=== PATIENT | female | born 1970 | race Caucasian/White ===

== ENCOUNTER 2020-11-26 10:01 | Outpatient (CLI) | payer OTHER, SELFPAY ==
[2020-11-26 10:47] LABS: Basophils Absolute Auto 0.1 K/mm3 (0.0-0.1); Basophils Percent Auto 1.3 % (0.2-1.2); Eosinophils Absolute Auto 0.2 K/mm3 (0-0.3); Hematocrit 38.7 % (37.0-47.0); Hemoglobin 12.7 g/dL (12.0-15.0); Immature Granulocyte Absolute 0.02 K/mm3 (0.00-0.031); Immature Granulocyte Percent A 0.3 % (0-0.5); Lymphocytes Absolute Auto 2.71 K/mm3 (0.9-3.2); Lymphocytes Percent Auto 38.6 % (18.3-44.2); Mean Corpuscular HGB Conc 32.8 g/dl (32-36); Mean Corpuscular Hemoglobin 31.5 pg (26-34); Mean Platelet Volume 11.6 fl (7.4-10.4); Monocytes Absolute Auto 0.6 K/mm3 (0.1-0.6); Monocytes Percent Auto 8.5 % (2.6-8.5); Neutrophils Absolute Auto 3.4 K/mm3 (1.3-6.7); Neutrophils Percent Auto 48.3 % (45.5-73.1); Platelet Count Result 245 k/mm3 (150-375); Red Blood Count 4.03 M/mm3 (4.2-5.4); Red Cell Distribution Width 12.7 % (11.5-14.5)
[2020-11-26 11:00] LABS: Alanine Aminotransferase 10 U/L (4-35); Albumin Level 4.4 g/dL (3.5-5.1); Alkaline Phosphatase 51 U/L (38-126); Anion Gap 9 mmol/L (8-16); Aspartate Amino Transferase 20 U/L (14-36); Bilirubin,Total 0.4 mg/dL (0.2-1.3); Blood Urea Nitrogen 9 mg/dL (7-17); Calcium 9.5 mg/dL (8.4-10.2); Carbon Dioxide 26 mmol/L (22-30); Chloride 103 mmol/L (98-107); Cholesterol 187 mg/dL (0-200); Estimated Glomerular Filt Rate > 60; Glucose 90 mg/dL (65-105); HDL Direct 62 mg/dL; Potassium 4.4 mmol/L (3.4-5.0); Sodium 138 mmol/L (137-145); Triglycerides 62 mg/dL (<150)
[2020-11-26 11:11] LABS: LDL Cholesterol Direct 91 mg/dL
[2020-11-26 11:30] LABS: Free T4 Free Thyroxine 0.92 ng/mL (0.78-2.19)
[2020-11-29 20:06] LABS: FSH 12.7 mIU/mL (***); LH 8.3 mIU/mL (***)
== END 2020-11-26 10:02 | disposition home or self-care (01) ==
PROVIDERS: PCP Family Medicine; Visit Provider Family Medicine
DX: Z00.00 Encounter for general adult medical examination without abnormal findings (principal); R60.9 Edema, unspecified; N95.1 Menopausal and female climacteric states
CPT/HCPCS: 36415; 80053; 80061; 83001; 83002; 84439; 84443; 85025

== ENCOUNTER 2021-05-08 07:49 | Outpatient (CLI) | payer OTHER, SELFPAY ==
--- NOTE | ~2021-05-08 | MM_ITS ---
EXAMINATION: MM screening [facility] BI w diana HISTORY: Screening mammogram TECHNIQUE: Craniocaudal and mediolateral oblique 3-D tomosynthesis images were obtained and synthetic 2-D images were generated. CAD analysis was submitted and interpreted. COMPARISON: 08/06/2018, 03/13/2017 BREAST PARENCHYMAL COMPOSITION: There are scattered areas of fibroglandular density. FINDINGS: There is no evidence of suspicious mass, calcification, or architectural distortion to sugg est malignancy in either breast. There has been no suspicious interval change. IMPRESSION: 1. No mammographic evidence of malignancy. 2. Recommend routine screening mammography in one year. BI-RADS Category 1: Negative Reviewed, dictated and finalized at location A. RVISOR SANDBLASTER
== END 2021-05-08 07:50 | disposition home or self-care (01) ==
PROVIDERS: PCP Family Medicine; Visit Provider Physician Assistant
DX: Z12.31 Encounter for screening mammogram for malignant neoplasm of breast (principal)
CPT/HCPCS: 77063; 77067

== ENCOUNTER 2022-01-29 16:08 | Emergency (ER) | payer OTHER, SELFPAY ==
--- NOTE | 2022-01-29 16:10 | ED.EXTPRO ---
HPI - Extremity Problem General Chief complaint: Skin/Abscess/Foreign Body Stated complaint: swollen finger Time Seen by Provider: 01/29/22 16:09 Source: patient Mode of arrival: ambulatory Limitations: no limitations History of Present Illness HPI Narrative: Ms. Oropeza is a 51-year-old female patient presenting to the clinic today with complaints of a swollen finger right fourth finger. She reports she had what she thought was an ingrown hangnail and remove this. Reports that the pain began last night. Has redness, pain and swelling to the fourth medial distal finger without obvious abscess/drainage. Related Data Allergies Allergy/AdvReac Type Severity Reaction Status Date / Time ibuprofen AdvReac Intermediate Gastrointestinal Verified 01/29/22 16:11 Upset Review of Systems Review of Systems: Pertinent positives per HPI. Patient denies any fever, chills, rash, headache, visual changes, dizziness, cough, runny nose, sore throat, shortness of breath, chest pain, palpitations, nausea, vomiting, diarrhea, constipation, abdominal pain, or any urinary issues. PMFSH Past Medical History Medical History Nicotine dependence Family History Family History Father Hypertension Family history of cardiovascular disease Mother Hypertension Family history of cardiovascular disease Carcinoma of colon, Onset Age: 57 Other Family history of irritable bowel syndrome Social History Social History Smoking packs per day: 1 Smoking cigarettes per day: 20.0 Years smoked: 20 Smoking pack-years: 20.00 Smoking status: Former smoker Smoking end date: 05/27/19 Alcohol intake: current Substance use: current Substance use type: marijuana Comments At the time of my signature, I reviewed and agree with the nursing past medical, surgical, social, and family history. There is no relevant family history pertinent to the patient complaint. Exam Narrative: General: Well-developed, well nourished, in no apparent distress Head: Normocephalic, atraumatic. Cardio: Regular rate and rhythm, s1 and s2 normal, no murmur appreciated. Resp: Clear to auscultation bilaterally, no rhonchi, rales, wheezing or rubs. Integumentary: [place], warm, and dry, red, tender, and swollen medial right fourth distal finger without discharge or abscess Course Course Emergency Course: Portions of this record may have been created with voice recognition software. Level of Care: Express Care Visit Vital Signs Vital signs: Vital Signs Temperature 37.1 C 01/29/22 16:15 Pulse Rate 64 01/29/22 16:15 Respiratory Rate 18 01/29/22 16:15 Blood Pressure 121/65 01/29/22 16:15 Pulse Oximetry 100 01/29/22 16:15 Oxygen Delivery Room Air 01/29/22 16:15 Temperature 37.1 C 01/29/22 16:15 Pulse Rate 64 01/29/22 16:15 Respiratory Rate 18 01/29/22 16:15 Blood Pressure 121/65 01/29/22 16:15 Pulse Oximetry 100 01/29/22 16:15 Oxygen Delivery Room Air 01/29/22 16:15 Vital signs reviewed MDM - Extremity (Nontraumatic) MDM Narrative Medical decision making narrative: At the time of visit patient is resting comfortably on the exam table. I suspect the patient has a paronychia to the right fourth finger. I will place her on a prescription of doxycycline. Supportive measures were discussed with the patient she voiced understanding of discharge instructions and agrees to treatment plan. Differential Diagnosis Differential diagnosis: Likely cellulitis and other (Paronychia, ingrown fingernail infected) Discharge Plan Discharge Clinical Impression: Paronychia Patient Disposition: Home, Self-Care Condition: Stable Instructions: Antibiotic Form, Paronychia (ED) Additional Instructions: May continue to soak finger in Ep
[2022-01-29 16:15] VITALS: BP 121/65; PULSE 64; RESP 18; TEMP 37.1; O2SAT 100
== END 2022-01-29 16:26 | disposition home or self-care (01) ==
PROVIDERS: Emergency Provider Nurse Practitioner Family; PCP Family Medicine
DX: L03.011 Cellulitis of right finger (principal); Z87.891 Personal history of nicotine dependence
CPT/HCPCS: 99213; G0463

== ENCOUNTER 2022-03-07 10:03 | Emergency (ER) | payer OTHER, SELFPAY ==
[2022-03-07 10:17] VITALS: BP 142/84; PULSE 67; RESP 18; TEMP 36.5; O2SAT 100
--- NOTE | 2022-03-07 10:21 | ED.EXTPRO ---
HPI - Extremity Problem General Chief complaint: Skin/Abscess/Foreign Body Stated complaint: Finger on Lt Hand Source: patient History of Present Illness HPI Narrative: This is a 51-year-old female who presented to the urgent care with complaints of left middle finger pain and swelling. According to patient she has had this condition in the past she noted that while she was at home she soaked her finger in [place] salt. The patient denies SOB, CP, palpitation, extremity numbness, lightheadedness, dizziness, constipation, diarrhea, chills, or fever. Sensations positive, pulses present in affected finger Related Data Allergies Allergy/AdvReac Type Severity Reaction Status Date / Time ibuprofen AdvReac Intermediate Gastrointestinal Verified 03/07/22 10:05 Upset Review of Systems Review of Systems: A 14 organ system Review of Systems was performed and pertinent positives included in the HPI, otherwise remaining ROS is negative. [facility] Past Medical History Medical History Nicotine dependence Family History Family History Father Hypertension Family history of cardiovascular disease Mother Hypertension Family history of cardiovascular disease Carcinoma of colon, Onset Age: 57 Other Family history of irritable bowel syndrome Social History Social History Smoking packs per day: 1 Smoking cigarettes per day: 20.0 Years smoked: 20 Smoking pack-years: 20.00 Smoking status: Former smoker Smoking end date: 05/27/19 Alcohol intake: current Substance use: current Substance use type: marijuana Exam Narrative: GENERAL: This is a well-nourished, well-developed patient, in no apparent distress. HEAD: normocephalic, atraumatic. EYES: PERRL. Sclera clear/white. Vision is grossly intact. EARS: External ears normal, auditory canals clear and without drainage, TMs normal without perforation. Hearing grossly intact. NOSE: External nose normal with no obvious nasal discharge, nares without redness, no rhinorrhea. THROAT: Mucous membranes moist, posterior pharynx clear. NECK: Neck supple, non-tender without lymphadenopathy, masses or thyromegaly. CARDIOVASCULAR: Regular rate and rhythm without murmurs, gallops, or rubs. RESPIRATORY: Clear to auscultation. Breath sounds equal bilaterally. No wheezes, rales, or rhonchi. GASTROINTESTINAL: Abdomen soft, non-tender, nondistended. Bowel sounds are active. No hepato-splenomegaly, or palpable masses. No guarding. SKIN: warm, intact with no suspicious lesions or rash, good texture and turgor. NEURO: awake, alert, and oriented to person, place and time. There were no obvious focal neurologic abnormalities. EXTREMITIES: Normal range of motion.. No calf tenderness. Left middle finger with edema and erythema. Course Course Level of Care: Express Care Visit Vital Signs Vital signs: Vital Signs Temperature 97.7 F 03/07/22 10:17 Pulse Rate 67 03/07/22 10:17 Respiratory Rate 18 03/07/22 10:17 Blood Pressure 142/84 H 03/07/22 10:17 Pulse Oximetry 100 03/07/22 10:17 Oxygen Delivery Room Air 03/07/22 10:17 Temperature 97.7 F 03/07/22 10:17 Pulse Rate 67 03/07/22 10:17 Respiratory Rate 18 03/07/22 10:17 Blood Pressure 142/84 H 03/07/22 10:17 Pulse Oximetry 100 03/07/22 10:17 Oxygen Delivery Room Air 03/07/22 10:17 MDM - Extremity (Nontraumatic) Differential Diagnosis Differential diagnosis: Likely cellulitis and lower extremity edema Medical Records Attestation: I reviewed the patient's medical records. Discharge Plan Discharge Clinical Impression: Cellulitis Patient Disposition: Home, Self-Care Condition: Stable Instructions: Antibiotic Form, Cellulitis (ED) Additional Instructions: Take medications as prescribed. Foll
== END 2022-03-07 10:28 | disposition home or self-care (01) ==
PROVIDERS: Emergency Provider Nurse Practitioner; PCP Family Medicine
DX: L03.012 Cellulitis of left finger (principal); Z87.891 Personal history of nicotine dependence
CPT/HCPCS: 99213; G0463

== ENCOUNTER → 2022-04-26 11:30 | Outpatient (CLI) | payer OTHER, SELFPAY ==
--- NOTE | ~2022-04-26 | XR_ITS ---
XR chest 2V DATE: 04/26/2022 12:06 INDICATION: Chest pain, anxiety. Former smoker. TECHNIQUE: 2 views COMPARISON: None FINDINGS: Normal heart size. No hilar or mediastinal enlargement. The lungs are moderately hyperinflated but clear of infiltrate or consolidation. No pleural effusion or pulmonary vascular congestion or pneumothorax. Moderate thoracic and lumbar scoliosis. IMPRESSION: Moderate bilateral hyperinflation No active cardiac pulmonary disease Moderate thoracic and lumbar scoliosis Reviewed, dictated and finalized at location B. UNITY ASSISTANT
== END ==
PROVIDERS: PCP Physician Assistant; Visit Provider Physician Assistant
DX: R07.9 Chest pain, unspecified (principal); M41.9 Scoliosis, unspecified
CPT/HCPCS: 71046

== ENCOUNTER 2022-05-09 09:57 | Outpatient (CLI) | payer OTHER, SELFPAY ==
--- NOTE | 2022-05-09 10:34 | EST_ITS ---
Patient Info Name: Suzanne Rodriguez Age: 51 years : 1970 Gender: Female Ht: 62 in Wt: 125 lbs BSA: 1.58 m2 HR: 61 bpm BP: 147 / 88 mmHg Heart Rhythm: Sinus Rhythm Exam Date: 05/09/2022 10:53 AM Exam Location: [facility] Stress Patient Status: Outpatient Admit Date: 05/09/2022 Staff Ordering Physician: Johan De La Rosa PA-C Attending Provider: Johan De La Rosa PA-C Exercise Technologist: Aida Gay CT Exercise Physician: Chao Juarez DO Exam Type: CA stress test treadmill Study Info Indications R07.9 - Chest pain, unspecified A treadmill exercise stress test was performed. Summary 1. 1. Negative [place] exercise stress test for ischemic ST changes by ECG criteria. 2. 2. Good functional capacity, achieving 10 METs of workload. 3. 3. Baseline hypertension. 4. 4. Appropriate HR response to exercise. 5. 5. Appropriate HR recovery at 1 minute post exercise. 6. 6. No imaging with stress testing. 7. 7. Patient informed of the above results. Protocol: [place] Stress ECG Details Stage: REST Duration (min): 3 min : 27 sec Speed (mph): 0.0 Grade (%): 0 HR (bpm): 65 SBP (mmHg): 147 DBP (mmHg): 88 METS: --- Stage: REST Duration (min): 14 min : 34 sec Speed (mph): 0.0 Grade (%): 0 HR (bpm): 65 SBP (mmHg): 147 DBP (mmHg): 88 METS: --- Stage: STAGE 1 Duration (min): 1 min : 0 sec Speed (mph): 1.7 Grade (%): 10 HR (bpm): 100 SBP (mmHg): 147 DBP (mmHg): 88 METS: --- Stage: STAGE 1 Duration (min): 2 min : 0 sec Speed (mph): 1.7 Grade (%): 10 HR (bpm): 101 SBP (mmHg): 147 DBP (mmHg): 88 METS: --- Stage: STAGE 1 Duration (min): 3 min : 0 sec Speed (mph): 1.7 Grade (%): 10 HR (bpm): 101 SBP (mmHg): 147 DBP (mmHg): 96 METS: --- Stage: STAGE 2 Duration (min): 1 min : 0 sec Speed (mph): 2.5 Grade (%): 12 HR (bpm): 121 SBP (mmHg): 147 DBP (mmHg): 96 METS: --- Stage: STAGE 2 Duration (min): 2 min : 0 sec Speed (mph): 2.5 Grade (%): 12 HR (bpm): 127 SBP (mmHg): 147 DBP (mmHg): 96 METS: --- Stage: STAGE 2 Duration (min): 3 min : 0 sec Speed (mph): 2.5 Grade (%): 12 HR (bpm): 130 SBP (mmHg): 147 DBP (mmHg): 96 METS: --- Stage: STAGE 3 Duration (min): 1 min : 0 sec Speed (mph): 3.4 Grade (%): 14 HR (bpm): 137 SBP (mmHg): 147 DBP (mmHg): 96 METS: --- Stage: STAGE 3 Duration (min): 2 min : 0 sec Speed (mph): 3.4 Grade (%): 14 HR (bpm): 152 SBP (mmHg): 147 DBP (mmHg): 96 METS: --- Stage: STAGE 3 Duration (min): 2 min : 59 sec Speed (mph): 4.2 Grade (%): 16 HR (bpm): 156 SBP (mmHg): 147 DBP (mmHg): 96 METS: --- Stage: RECOVERY Duration (min): 1 min : 0 sec Speed (mph): 0.0 Grade (%): 0 HR (bpm): 108 SBP (mmHg): 147 DBP (mmHg): 96 MET
== END 2022-05-09 09:58 | disposition home or self-care (01) ==
LOC: ANHCARD 09:59
PROVIDERS: PCP Physician Assistant; Visit Provider Physician Assistant
DX: R07.9 Chest pain, unspecified (principal)
CPT/HCPCS: 93017

== ENCOUNTER 2022-07-06 08:43 | Outpatient (CLI) | payer OTHER, SELFPAY ==
--- NOTE | ~2022-07-06 | MM_ITS ---
EXAMINATION: MM screening [facility] BI w diana HISTORY: Screening mammogram TECHNIQUE: Craniocaudal and mediolateral oblique 3-D tomosynthesis images were obtained and synthetic 2-D images were generated. CAD analysis was submitted and interpreted. COMPARISON: 05/08/2021, 08/06/2018, 03/13/2017, 03/13/2017, 06/29/2013 bilateral screening mammogram exa minations BREAST PARENCHYMAL COMPOSITION: There are scattered areas of fibroglandular density. FINDINGS: Stable asymmetric increased density in the right inferolateral subareolar area since 2013. There is no evidence of suspicious mass, calcification, or architectural distortion to suggest malign babar in either breast. There has been no suspicious interval change. IMPRESSION: 1. No mammographic evidence of malignancy. 2. Recommend routine screening mammography in one year. BI-RADS Category 1: Negative Reviewed, dictated and finalized at location A. GER NET
== END 2022-07-06 08:44 | disposition home or self-care (01) ==
PROVIDERS: PCP Family Medicine; Visit Provider Physician Assistant
DX: Z12.31 Encounter for screening mammogram for malignant neoplasm of breast (principal)
CPT/HCPCS: 77063; 77067

== ENCOUNTER 2022-09-26 07:50 | Outpatient (CLI) | payer OTHER, SELFPAY ==
--- NOTE | ~2022-09-26 | US_ITS ---
Limited Abdominal Sonogram: Real-time sonographic imaging of the right upper quadrant was performed. Clinical History: Right upper quadrant pain Findings: The liver appears normal with no evidence of mass lesion or bile duct dilatation. Main por pavan vein demonstrates normal direction of flow. The gallbladder is well distended, and appears normal with no evidence of gallstone or wall thickening. The common bile duct measures 3 mm. The visualize d pancreas, aorta, and IVC are unremarkable. Impression: No significant abnormality seen. Reviewed, dictated and finalized at location M. Impression: No significant abnormality seen.
== END 2022-09-26 07:51 | disposition home or self-care (01) ==
PROVIDERS: PCP Family Medicine; Visit Provider Physician Assistant
DX: R10.11 Right upper quadrant pain (principal)
CPT/HCPCS: 76705

== ENCOUNTER 2023-08-27 16:55 | Outpatient (CLI) | payer OTHER, SELFPAY ==
--- NOTE | ~2023-08-27 | US_ITS ---
EXAMINATION: US thyroid DATE: 08/27/2023 18:28 INDICATION: Nontoxic, single thyroid nodule TECHNIQUE: Multiple ultrasound images of the thyroid were obtained. COMPARISON: None. FINDINGS: The right thyroid lobe measures 4.8 x 1.3 x 1.3 cm. The left thyroid lobe measures 3.8 x 0.8 x 1.0 c m. The isthmus measures 0.3 cm. There is normal echotexture and echogenicity throughout the thyroid g land. No discrete nodules identified. Normal vascular flow is present. IMPRESSION: Normal thyroid ultrasound findings. Reviewed, dictated and finalized at location K.
== END 2023-08-27 16:56 | disposition home or self-care (01) ==
LOC: ANHIMG 16:56
PROVIDERS: PCP Family Medicine; Visit Provider Family Medicine
DX: E04.1 Nontoxic single thyroid nodule (principal)
CPT/HCPCS: 76536

== ENCOUNTER 2023-10-11 08:30 | Outpatient (RCR) | payer OTHER, SELFPAY ==
--- NOTE | 2023-09-03 11:55 | OPREHPOC ---
Outpatient Therapy Plan of Care This is a Multidisciplinary Plan of Care that may contain components documented by all disciplines (PT, OT, and ST.) PT Problem 1 PT Problem #1 Knowledge Deficit PT Goal 1 Goal Pt to be IND with issued HEP. Target Visit 6 PT Problem 2 PT Problem #2 Pain PT Goal 1 Goal Pt to report hip pain no greater than 3/10 in the last week. Target Visit 8 PT Goal 2 Goal Pt to report 75% improvement in overall symptoms. PT Problem 3 PT Problem #3 Impaired Strength PT Goal 1 Goal Pt to improve hip abduction strength to grossly 4+ /5 Target Visit 8 PT Goal 2 Goal Pt to demonstrate a functional lift and carry from ground level with 30lb Target Visit 8
--- NOTE | 2023-09-03 11:55 | PTOPEVAL1 ---
Assessment and note entered by Emmy Bahena, PT, DPT Evaluation Information Assessment Status Evaluation Diagnosis caleb hip pain Onset 6 months Subjective Information Pt reports lower back and anterior hip pain, but primarily her hips. She states pain that fluctuates depending on her activity level. She will wake up while sleeping, has difficultly bending over, and with prolonged positions. She states she has been talking Alive which has helped her pain but is messing with her stomach some. She reports that she walks at the [facility] and does yoga a couple times a week. Reported Pain Level Pain Score 0: Self Report Assessment PT Clinical Summary Suzanne presents to therapy today with a diagnosis of caleb hip pain. Today she demonstrates BLE hypermobility with grossly a 4/5 muscle grade strength. She demonstrates asymmetric pelvic positioning in supine. She demonstrates increased lateral pelvic motion during ambulation and decreased body awareness with poor lifting mechanics during a functional movement assessment. Skilled therapy services are indicated to address the deficits noted above, to improve function and stability, and to return to OF. Plan of Care Interventions Electrical Stimulation,Gait Training,Hot Pack/Cold Pack PT Services Indicated Yes Treatment Frequency and 1x/wk for 6 visits Duration These treatments will address the objective and functional deficits as defined above. The patient will be advanced safely and appropriately in order for the patient to progress towards his/her prior level of function. Additional exercises will be introduced and as well as a comprehensive home exercise program upon discharge, if needed, ?to ensure carryover of functional gains achieved in the clinic. This treatment plan has been reviewed and agreement upon by the patient.
--- NOTE | 2023-10-11 09:02 | OPREHPOC ---
Outpatient Therapy Plan of Care This is a Multidisciplinary Plan of Care that may contain components documented by all disciplines (PT, OT, and ST.) PT Problem 1 PT Problem #1 Knowledge Deficit PT Goal 1 Goal Pt to be IND with issued HEP. Target Visit 6 Progress Met PT Problem 2 PT Problem #2 Pain PT Goal 1 Goal Pt to report hip pain no greater than 3/10 in the last week. Target Visit 8 Progress Met PT Goal 2 Goal Pt to report 75% improvement in overall symptoms. Progress Met PT Problem 3 PT Problem #3 Impaired Strength PT Goal 1 Goal Pt to improve hip abduction strength to grossly 4+ /5 Target Visit 8 Progress Met PT Goal 2 Goal Pt to demonstrate a functional lift and carry from ground level with 30lb Target Visit 8 Progress Met
--- NOTE | 2023-10-11 09:02 | PTOPDC ---
Assessment and note entered by Ryan Zhu, PT Evaluation Information Assessment Status Discharge Diagnosis caleb hip pain Onset 6 months Subjective Information Reports that she feel she has hit all of her goals for therapy. States that she has had minimal to no pain with activity and has resumed majority of her exercise routine with no issues. Requests discharge at this time. Reported Pain Level Pain Score 0: Self Report Assessment PT Clinical Summary Patient has met all goals for therapy at this time and is suitable for discharge to [facility]. Patient demonstrates improved strength and stabilization and good understanding of HEP to continue to improve. Plan of Care PT Services Indicated D/C to HEP
== END 2023-10-11 10:36 | disposition home or self-care (01) ==
LOC: ANHGOSHPT 08:30
PROVIDERS: PCP Family Medicine; Visit Provider Family Medicine
DX: S30.1XXD Contusion of abdominal wall, subsequent encounter (principal); M70.70 Other bursitis of hip, unspecified hip
CPT/HCPCS: 97110; 97112; 97161; 97530

== ENCOUNTER 2024-01-10 10:05 | Emergency (ER) | payer OTHER, SELFPAY ==
[2024-01-10 10:15] VITALS: BP 139/81; PULSE 65; RESP 16; TEMP 36.8; O2SAT 100
[2024-01-10 10:34] LABS: EDSTREPNEGPOS1 Presumptive Negative
--- NOTE | 2024-01-10 10:44 | ED.EAR ---
HPI - Ear Problem General Chief complaint: Ear Stated complaint: R EARACHE/CLOGGED/SORE THROAT Time Seen by Provider: 01/10/24 10:36 Source: patient and RN notes reviewed Mode of arrival: ambulatory Limitations: no limitations History of Present Illness HPI Narrative: Patient presents today complaining of 5 day history of right ear clogging and ringing, with a 2 day history of sore throat and postnasal drainage. Reports she has bit of a chronic congestion due to allergies for which she takes Zyrtec. She has also been taking some Tylenol with mild relief. Denies fever, cough. Related Data Allergies Allergy/AdvReac Type Severity Reaction Status Date / Time ibuprofen AdvReac Intermediate Gastrointestinal Verified 08/22/23 14:54 Upset lisinopril AdvReac Intermediate Cough Verified 08/22/23 15:20 Review of Systems Review of Systems: CONSTITUTIONAL: Denies body aches, fever, chills, or sweats. EYES: Denies visual changes, redness, or discharge. ENT: Denies rhinorrhea, congestion. + sore throat, right ear clogging, postnasal drip, congestion CARDIOVASCULAR: Denies chest pain, palpitations, or edema. RESPIRATORY: Denies cough or dyspnea. GASTROINTESTINAL: Denies abdominal pain, nausea, vomiting, or diarrhea. GENITOURINARY: Denies dysuria or hematuria. SKIN: Denies rash, itching, or wounds. MUSCULOSKELETAL: Denies back pain, joint pain, or myalgia. NEUROLOGIC: Denies headache, numbness, tingling, or weakness. PSYCH: Denies depression or anxiety. [facility] Past Medical History Medical History Clostridium difficile colitis Nicotine dependence Family History Family History Father Hypertension Family history of cardiovascular disease Mother Hypertension Family history of cardiovascular disease Carcinoma of colon, Onset Age: 57 Other Family history of irritable bowel syndrome Social History Social History Smoking packs per day: 1 Smoking cigarettes per day: 20.0 Years smoked: 20 Smoking pack-years: 20.00 Smoking status: Former smoker Smoking end date: 10/25/22 Alcohol intake: current Substance use: current Substance use type: marijuana Lack of Transportation: No Lack of Food: Never True Current Housing: I Have Housing Concerned About Future Housing: No Difficulty Paying Gas/Electric Bills: No Currently Unemployed: No Education: High School Diploma/GED Difficulty w/ Childcare or Family Care: No Comments At time of signature, I have reviewed and agree with nursing past medical, surgical, social and family history unless otherwise noted. Please see nursing chart for further information. There is no relevant family history pertinent to the presenting complaint Exam Narrative: GENERAL: Well-appearing, well-nourished, and in no acute distress. HEAD: Normocephalic, atraumatic. EYES: EOMI. No redness or drainage. Conjunctivae normal. ENT: Mucous membranes pink and moist. Nares congested. No rhinorrhea. TMs normal bilaterally. Throat normal. Uvula midline. NECK: Normal AROM. Supple. No lymphadenopathy. CHEST: No respiratory distress. Clear to auscultation. HEART: Regular rate and rhythm. No murmur appreciated. EXTREMITIES: Normal range of motion. No edema. SKIN: Warm, dry, no rash. Capillary refill normal. Normal skin turgor. NEURO: No focal deficits. Alert and oriented x3. Gait steady. PSYCH: Normal affect. No signs of depression or anxiety. Course Course Level of Care: Express Care Visit Vital Signs Vital signs: Vital Signs Temperature 98.3 F 01/10/24 10:15 Pulse Rate 65 01/10/24 10:15 Respiratory Rate 16 01/10/24 10:15 Blood Pressure 139/81 01/10/24 10:15 Pulse Oximetry 100 01/10/24 10:15 Temperature 98.3 F 01/10/24 10:15 Pulse Rate 65 01/09
== END 2024-01-10 10:51 | disposition home or self-care (01) ==
PROVIDERS: Emergency Provider Nurse Practitioner; PCP Family Medicine
DX: J06.9 Acute upper respiratory infection, unspecified (principal); Z87.891 Personal history of nicotine dependence; F12.90 Cannabis use, unspecified, uncomplicated
CPT/HCPCS: 87081; 87880; 99213; G0463

== ENCOUNTER 2024-03-02 09:11 | Outpatient (CLI) | payer OTHER, SELFPAY | END 2024-03-02 09:12 | disposition home or self-care (01) | LOC: ANHAUDIO 09:13 | PROVIDERS: PCP Family Medicine; Visit Provider Family Medicine | DX: H90.41 Sensorineural hearing loss, unilateral, right ear, with unrestricted hearing on the contralateral side (principal) | CPT/HCPCS: 92557; 92567 ==

== ENCOUNTER 2024-03-22 12:18 | Emergency (ER) | payer OTHER, SELFPAY ==
[2024-03-22 12:23] VITALS: BP 129/80; PULSE 59; RESP 16; TEMP 36.6; O2SAT 100
--- NOTE | 2024-03-22 12:29 | ED.GENADULT ---
HPI - General Adult General Chief complaint: Dental/Oral Stated complaint: Tooth Pain/Neck Pain Time Seen by Provider: 03/22/24 12:29 Source: patient Mode of arrival: ambulatory Limitations: no limitations History of Present Illness HPI narrative: 53 year old female presents to the [facility] with co left sided ear, jaw and throat pain. Patient states she has an appt with her dentist tomorrow to check out her tooth to the bottom left back. colleague denies fevers, body aches and chills. Colleauge states she has been controlling her pain with TYN but the pain has significantly increase today. Denies congestion, or cough. Related Data Home Medications Medication Instructions Recorded Confirmed cetirizine 10 mg capsule (Zyrtec) 10 mg PO DAILY PRN 02/18/24 02/18/24 Allergies Allergy/AdvReac Type Severity Reaction Status Date / Time ibuprofen AdvReac Intermediate Gastrointestinal Verified 03/22/24 12:35 Upset lisinopril AdvReac Intermediate Cough Verified 03/22/24 12:35 Review of Systems Review of Systems: CONSTITUTIONAL: Denies fever, chills, or sweats. EYES: Denies visual changes, redness, or discharge. ENT: Denies rhinorrhea, congestion, Positive sore throat, positive left otalgia. positive left-sided jaw pain and dental pain CARDIOVASCULAR: Denies chest pain, palpitations, or edema. RESPIRATORY: Denies cough or dyspnea. GASTROINTESTINAL: Denies abdominal pain, nausea, vomiting, or diarrhea. GENITOURINARY: Denies dysuria or hematuria. SKIN: Denies rash or itching. MUSCULOSKELETAL: Denies back pain, joint pain, or myalgia. NEUROLOGIC: Denies headache, numbness, or weakness. PSYCHIATRIC: Denies anxiety or depression. [facility] Past Medical History Medical History Clostridium difficile colitis Nicotine dependence Vasovagal episode when she got her flu and shingles shot at [employer]. Family History Family History Father Hypertension Family history of cardiovascular disease Mother Hypertension Family history of cardiovascular disease Carcinoma of colon, Onset Age: 57 Other Family history of irritable bowel syndrome Social History Social History Smoking packs per day: 1 Smoking cigarettes per day: 20.0 Years smoked: 20 Smoking pack-years: 20.00 Smoking status: Former smoker Smoking end date: 10/25/22 Alcohol intake: never Substance use: current Substance use type: marijuana Other substance usage details: edible and vape Last use: today Do You Feel Safe in your Home?: Yes Lack of Transportation: No Lack of Food: Never True Current Housing: I Have Housing Concerned About Future Housing: No Difficulty Paying Gas/Electric Bills: No Currently Unemployed: No Education: High School Diploma/GED Difficulty w/ Childcare or Family Care: No Comments At the time of my signature I agree with nursing past medical history, surgical, social, and family history. There is no relevant family history pertinent to the presenting complaint. Exam Narrative: GENERAL: Well-appearing, well-nourished, and in no acute distress. HEAD: Normocephalic, atraumatic. EYES: PERRLA and EOMI. ENT: Nares clear, no rhinorrhea or epistaxis. Mucous membranes moist. no significant redness or swelling noted to the or need dental areas in the mouth. There is some white spots noted to the posterior pharynx but do not tonsillar enlargement noted. The bilateral TMs are clear no erythema or foreign bodies the canal. NECK: Supple. No lymphadenopathy CHEST: Clear to auscultation. No respiratory distress. HEART: Regular rate and rhythm. No murmur heard. Normal peripheral pulses. ABDOMEN: Soft, nontender, nondistended, normal active bowel sounds. EXTREMITIES: Normal range of motion. No edema. SKIN: Warm, dry, no rash. NEURO: No focal deficits. Alert and oriented x3. Course Course Level of Care: Express Care Visit Reevaluation(s) Reevaluation #1: re-evaluated patient notified of the the strep test is negative we will send off the lab for culture. Discussed with her and re-evaluated the jaw the left no obvious TMJ noted. Discussed with patient to continue to follow-up with her dentist as scheduled for tomorrow continue taking Tylenol ibuprofen for pain may use a warm compress to the area as well. Patient aware plan of care denies any other questions or concerns. Date: 03/22/24 Time: 12:55 Vital Signs Vital signs: Vital Signs Temperature 36.6 C 03/22/24 12:23 Pulse Rate 59 L 03/22/24 12:23 Respiratory Rate 16 03/22/24 12:23 Blood Pressure 129/80 03/22/24 12:23 Pulse Oximetry 100 03/22/24 12:23 Temperature 36.6 C 03/22/24 12:23 Pulse Rate 59 L 03/22/24 12:23 Respiratory Rate 16 03/22/24 12:23 Blood Pressure 129/80 03/22/24 12:23 Pulse Oximetry 100 03/22/24 12:23 Vital signs reviewed. Medical Decision Making MDM Narrative Medical decision making narrative: Plan care patient is swabbed her today for strep to rule out any need for antibiotics. Discussed with patient I do not see an obvious signs or symptoms of a dental infection. I will reassess patient was this has resulted. Differential Diagnosis Differential Diagnosis: Differential diagnosis: Dental caries, periodontal disease, avulsed tooth, tooth infections, mandibular infection, Keenan's angiana, upper tooth infection, dry socket, gingivitis, acute necrotizing ulcerative gingivitis, sialolithiasis. Vital Signs Vital Signs: Vital Signs Temperature 36.6 C 03/22/24 12:23 Pulse Rate 59 L 03/22/24 12:23 Respiratory Rate 16 03/22/24 12:23 Blood Pressure 129/80 03/22/24 12:23 Pulse Oximetry 100 03/22/24 12:23 Temperature 36.6 C 03/22/24 12:23 Pulse Rate 59 L 03/22/24 12:23 Respiratory Rate 16 03/22/24 12:23 Blood Pressure 129/80 03/22/24 12:23 Pulse Oximetry 100 03/22/24 12:23 Critical Care Time Critical Care Time Critical Care Time: No Discharge Plan Discharge Clinical Impression: Jaw pain, Pharyngitis Patient Disposition: Home, Self-Care Condition: Stable Instructions: Antibiotic Form, Temporomandibular Disorder (ED) Additional Instructions: Avoid temperature extremes May apply heat or ice to the face Gentle brushing and flossing Alternate Tylenol and ibuprofen as needed for pain Prescriptions: No Action losartan 50 mg tablet 50 mg PO DAILY Qty: 90 3RF Zyrtec 10 mg capsule 10 mg PO DAILY PRN clonidine HCl 0.2 mg tablet 0.2 mg PO DAILY Qty: 90 3RF alprazolam 0.25 mg tablet 0.25 mg PO BID PRN (Reason: anxiety) Qty: 30 3RF valacyclovir [Valtrex] 1 gram tablet 2,000 mg PO BID Qty: 20 4RF Rx Instructions: take two now and repeat in 12 hrs for cold sores fluoxetine 20 mg capsule See Rx Instructions .ROUTE .COMPLEX Qty: 90 1RF Dose Instruction: TAKE 1 CAPSULE BY MOUTH DAILY Rx Instructions: TAKE 1 CAPSULE BY MOUTH DAILY Follow-up/Referrals: Sherly Melo MD [Primary Care Provider] - Time of Disposition: 12:54
[2024-03-22 13:11] LABS: EDSTREPNEGPOS1 Negative (Negative)
== END 2024-03-22 13:00 | disposition home or self-care (01) ==
PROVIDERS: Emergency Provider Nurse Practitioner Family; PCP Family Medicine
DX: R68.84 Jaw pain (principal); J02.9 Acute pharyngitis, unspecified; Z87.891 Personal history of nicotine dependence; F12.90 Cannabis use, unspecified, uncomplicated; Z86.19 Personal history of other infectious and parasitic diseases
CPT/HCPCS: 87081; 87880; 99213; G0463

== ENCOUNTER 2024-07-10 08:53 | Outpatient (CLI) | payer MEDICAID, SELFPAY ==
--- NOTE | ~2024-07-10 | MM_ITS ---
EXAMINATION: MM screening robert BI w diana HISTORY: Screening TECHNIQUE: Craniocaudal and mediolateral oblique 3-D tomosynthesis images were obtained and synthetic 2-D images were generated. CAD analysis was submitted and interpreted. COMPARISON: Comparison to multiple prior studies sequentially, with oldest reviewed study dated 02/24. BREAST PARENCHYMAL COMPOSITION: Not dense: There are scattered areas of fibroglandular density. FINDINGS: There is no evidence of suspicious mass, calcification, or architectural distortion to sugg est malignancy in either breast. There has been no suspicious interval change. IMPRESSION: 1. No mammographic evidence of malignancy. 2. Recommend routine screening mammography in one year. BI-RADS Category 1: Negative Reviewed, dictated and finalized at location B. IDENTIAL INVESTIGATOR
--- OUTSIDE RECORDS SUMMARY | 2024-07-10 09:01 | XMS_ITS | Clinical Summary ---
Author Organization [facility] Address [address] [place] [address] Care Team Providers Care Tag Stringer Name Role Phone Leonardo Tian MD Primary Care Provider [phone] Medications fluoxetine 20 MG capsule Take 20 mg by mouth daily. Active ALPRAZolam 0.5 MG tablet Take 0.5 mg by mouth 3 (three) times daily. Active dicyclomine 10 MG capsule Take 10 mg by mouth 3 (three) times daily. 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 Gender Identity Not on file Sexual Orientation Not on file Last Filed Vital Signs Vital Sign Reading Time Taken Comments Blood Pressure 100/69 08/24/2019 9:00 AM CDT Pulse 74 08/24/2019 8:50 AM CDT Temperature 36.8 C (98.2 F) 08/24/2019 8:40 AM CDT Respiratory Rate 14 08/24/2019 8:50 AM CDT Oxygen Saturation 100% 08/24/2019 8:50 AM CDT Inhaled Oxygen Concentration - - Weight - - Height - - Body Mass Index - - Plan of Treatment Health Maintenance Due Date Last Done Comments Cervical Cancer Screening Pa p Smear (Age 30 to 64) Every 3 Years 1968 Annual Physical 08/09/1971 Hepatitis C 1986 DTaP, Tdap and Td Vaccines ( 1 - Tdap) 08/09/1987 Hepatitis B Vaccines (1 of 3 - 19+ 3-dose series) 08/09/1987 Cervical Cancer Screening Pa p with HPV Testing (Age 30 to 64) Every 5 Years 1998 Cervical Cancer Screening with HPV 1998 Mammogram Screening 2008 Zoster Vaccines (1 of 2) 2018 COVID-19 Vaccine ( - 2023-2 5 season) 2024 Influenza Adult (#1) 2024 Colorectal Cancer Screening Colonoscopy (10 Years) 08/23/2029 08/24/2019 Meningococcal B Vaccine Aged Out No l onger eligible based on patient's age to complete this topic Meningococcal Vaccine Aged Out No elisa litzy eligible based on patient's age to complete this topic Pneumococcal Vaccine: Pediat rics (0 to 5 Years) and At-Risk Patients (6 to 64 Years) Aged Out No longer eligi ble based on patient's age to complete this topic RSV Immunizations Under 20 Months Aged Out No longer eligible based on patient's age to complete this topic Insurance [employer] Care Teams Tag Stringer Relationship Specialty Start Date End Date Leonardo Tian MD [address] [place] [address] PCP - General FAMILY PRACTICE 08/18/19
--- OUTSIDE RECORDS SUMMARY | 2024-07-10 09:01 | XMS_ITS | Clinical Summary ---
Author Organization [facility] Address [address] [address] Phone Care Team Providers Care Test Rider Name Role Phone Unavailable Primary Care Provider Unavailabl e Social History Tobacco Use Types Packs/Day Years Used Date Smoking Tobacco: Never Assessed Comments Unknown Sex and Gender Information Value Date Recorded Sex Assigned at Not on file Legal Sex Female 3:32 PM CDT Gender Identity Not on file Sexual Orientation Not on file Plan of Treatment Health Maintenance Due Date Last Done Comments Hepatitis C Virus (HCV) Screening 1968 TdaP Immunization 1968 Hepatitis B Immunization (1 of 3 - 19+ 3-dose series) 08/09/1987 Pap Smear 1989 Cervical Cancer Screening (CCS) 1998 HPV/Cotest 1998 Colonoscopy 2013 Colorectal Cancer Screening 2013 Cologuard 2018 Immunochemical Fecal Occult Blood 2018 Mammogram 2018 Pneumococcal Immunization (5 0+ years) (1 of 1 - PCV) 2018 Zoster Immunization (1 of 2) 2018 Influenza Immunization (#1) 2024 SARS-COV-2 Immunization ( - 2023-25 season) 2024 Respiratory Syncytial Virus (RSV) Immunization (Adult) (1 - 1-dose 75+ series) 08/09/2043 Meningococcal Immunization (ACWY) Aged Out No longer eligible based on patient's age to complete this topic Pneumococcal Immunization Combined Aged Out No longer eligible based on patient's age to complete this topic Rotavirus Immunization Aged Out No lo nger eligible based on patient's age to complete this topic Insurance MEDICAID [facility] [employer]
== END 2024-07-10 08:54 | disposition home or self-care (01) ==
LOC: ANHIMG 08:55
PROVIDERS: PCP Family Medicine; Visit Provider Family Medicine
DX: Z12.31 Encounter for screening mammogram for malignant neoplasm of breast (principal)
CPT/HCPCS: 77063; 77067

== ENCOUNTER 2024-09-24 12:30 | Outpatient (CLI) | payer OTHER, SELFPAY ==
--- NOTE | ~2024-09-24 | US_ITS ---
Pelvic ultrasound. Clinical History: Abnormal uterine bleeding Technique: Realtime transabdominal scanning of the pelvis was performed. Color flow Doppler and Doppl er spectral analysis were performed. Patient declined transvaginal imaging. Findings: The uterus is anteverted. The endometrial stripe has a thickness of 4 mm. No focal mass is identified. The right ovary measures 2.7 x 3.4 x 1.6 cm. No significant right ovarian or adnexal mass is seen. The left ovary measures 4.5 x 2.0 x 1.6 cm. No significant left ovarian or adnexal mass is seen. There is no evidence of free fluid in the cul de sac. Impression: No significant abnormality seen. Reviewed, dictated and finalized at location . Impression: No significant abnormality seen.
== END 2024-09-24 12:31 | disposition home or self-care (01) ==
PROVIDERS: PCP Family Medicine; Visit Provider Family Medicine
DX: N93.8 Other specified abnormal uterine and vaginal bleeding (principal)
CPT/HCPCS: 76856

== ENCOUNTER 2025-01-08 06:00 | Day surgery (SDC) | payer OTHER, SELFPAY ==
[2025-01-01 13:15] VITALS: BMI 24.7
[2025-01-08 06:25] VITALS: BP 135/66; PULSE 60; RESP 16; TEMP 36.1; O2SAT 100; BMI 23.4
[2025-01-08] MEDS: LACTATED RINGERS 1,000 ML 150 ML IV CONT (06:33)
--- OUTSIDE RECORDS SUMMARY | 2025-01-08 06:37 | XMS_ITS | Clinical Summary ---
Author Organization [facility] Address [address] [address] Phone Care Team Providers Care Ranch Supervisor Name Role Phone Unavailable Primary Care Provider [...] Cervical Cancer Screening (CCS) 1998 HPV/Cotest 1998 Cologuard 2013 Colonoscopy 2013 Colorectal Cancer Screening 2013 Immunochemical Fecal Occult Blood 2013 Pneumococcal Immunization (5 0+ years) (1 of 1 - PCV) 2018 Zoster Immunization (1 of 2) 2018 SARS-COV-2 Immunization ( - season) 2024 Influenza Immunization (#1) 2025 Respiratory Syncytial Virus (RSV) Immunization (Adult) (1 - 1-dose 75+ series) 08/09/2043 Human Papillomavirus (HPV) Immunization Aged Out No longer eligible b ased on patient's age to complete this topic Meningococcal Immunization (ACWY) Aged Out No longer eligible based on patient's age to complete this topic Rotavirus Immunization Aged Out No lo nger eligible based on patient's age to complete this topic Insurance MEDICAID [facility]
--- OUTSIDE RECORDS SUMMARY | 2025-01-08 06:37 | XMS_ITS | Clinical Summary ---
Author Organization [facility] Address [address] [place] [address] Care Team Providers Care Picking Machine Operator Name Role Phone Leonardo Tian MD Primary Care Provider [phone] Medications fluoxetine 20 MG capsule Take 20 [...] on file Legal Sex Female 12:34 PM LICENSING COORDINATOR Gender Identity Not on file Sexual Orientation [...] Screening with HPV 1998 Mammogram Screening 2008 Pneumococcal Vaccine: 50+ Ye ars (1 of 1 - PCV) 2018 Zoster Vaccines (1 of 2) 2018 COVID-19 Vaccine (1 - 2023-2 5 season) 2024 Colorectal Cancer Screening Colonoscopy (10 Years) 08/23/2029 08/24/2019 Meningococcal B Vaccine Aged Out No l onger eligible based on patient's age to complete this topic Meningococcal Vaccine Aged Out No elisa litzy eligible based on patient's age to complete this topic RSV Immunizations Under 20 Months Aged Out No longer eligible based on patient's age to complete this topic Insurance [place] Care Teams Picking Machine Operator Relationship Specialty Start Date End Date Leonardo Tian MD [address] [place] [address] PCP - General FAMILY PRACTICE 08/18/19
--- NOTE | 2025-01-08 07:09 | P.PNAN_ITS ---
Anes - Initial Pre Proc Eval Procedure: Operation Date: 01/08/25 07:30 Proposed Procedures p Screening Colonoscopy - Hiro Castellanos MD Date/Time: 01/08/25 07:09 Surgeon: Hiro Castellanos MD Pre Op Diagnosis: screening Patient Data Age: 54 Gender: F Height: 1.57 m Weight: 58.2 kg Last Vital Signs Temp 97 F L 01/08/25 06:25 Pulse 60 01/08/25 06:25 Resp 16 01/08/25 06:25 BP 135/66 01/08/25 06:25 Pulse Ox 100 01/08/25 06:25 O2 Del Method Room Air 01/08/25 06:25 Allergies Allergy/AdvReac Type Severity Reaction Status Date / Time ibuprofen AdvReac Intermediate Gastrointestinal Verified 01/08/25 06:23 Upset lisinopril AdvReac Intermediate Cough Verified 01/08/25 06:23 Home Medications ?Medication ?Instructions ?Recorded ?Confirmed ?Type cetirizine 10 mg capsule (Zyrtec) 10 mg PO DAILY PRN allergy symptoms 02/18/24 01/01/25 History clonidine HCl 0.2 mg tablet 0.2 mg PO DAILY #90 tabs 02/18/24 01/08/25 Rx losartan 50 mg tablet 50 mg PO DAILY #90 tabs 09/02/24 01/08/25 Rx fluoxetine 40 mg capsule 40 mg PO QAM #90 caps 09/03/24 01/08/25 Rx alprazolam 0.25 mg tablet 0.25 mg PO TID PRN anxiety #60 tabs 12/17/24 01/08/25 Rx gabapentin 100 mg capsule 100 mg PO QHS 01/01/25 01/08/25 History (Neurontin) Patient hx anesthesia problems: none Family hx anesthesia problems: none Results Review: All pre-operative results and documents have been reviewed as part of the pre- operative evaluation. [facility] Past Medical History Medical History Vasovagal episode when she got her flu and shingles shot at [employer]. Nicotine dependence Clostridium difficile colitis Family History Family History Father Hypertension Family history of cardiovascular disease Mother Hypertension Family history of cardiovascular disease Carcinoma of colon, Onset Age: 57 Other Family history of irritable bowel syndrome Social History Social History Smoking packs per day: 1 Smoking cigarettes per day: 20.0 Years smoked: 20 Smoking pack-years: 20.00 Smoking status: Former smoker Smoking end date: 10/25/22 Alcohol intake: never Substance use: current Substance use type: marijuana Other substance usage details: edible and smokes Last use: today Do You Feel Safe in your Home?: Yes Lack of Transportation: No Lack of Food: Never True Current Housing: I Have Housing Concerned About Future Housing: No Difficulty Paying Gas/Electric Bills: No Currently Unemployed: No Education: High School Diploma/GED Difficulty w/ Childcare or Family Care: No Anes - Eval Final PreProcedure Day of Procedure 01/08/25 07:09 Patient weight: normal and thin Lungs: normal air movement Airway: Mallampati scale class II Neurological: alert and oriented Last oral intake: >/= 8 hours ASA classification: II Emergent: no Anesthetic plan: proceed Anesthesia type and monitoring: general GIVS and standard monitoring Results Review: All pre-operative results and documents have been reviewed as part of the pre- operative evaluation. Chronic anxiety. Pt ex smoker, currently smokes cannabis daily. Informed Consent: The patient's anesthetic plan and its attendant risks and benefits were discussed with the patient/family/POA. Questions were solicited and answers provided to the satisfaction of the patient/family/POA.
--- NOTE | 2025-01-08 07:35 | PM.HPGS ---
History of Present Illness History of Present Illness Consent: Risks, benefits, and alternatives have been discussed and questions answered. Patient agrees to proceed with procedure. Chief complaint: screening Narrative: Suzanne Rodriguez is a 54 year old female here for colonoscopy, last one 5 years ago, mother had colon cancer Review of Systems Review of Systems: All systems reviewed & are unremarkable except as noted in HPI and below PMFSH Past Medical History Medical History (Updated 01/08/25 @ 07:36 by Hiro Castellanos MD) Family history of colon cancer in mother Vasovagal episode when she got her flu and shingles shot at [employer]. Nicotine dependence Clostridium difficile colitis Family History Family History Father Hypertension Family history of cardiovascular disease Mother Hypertension Family history of cardiovascular disease Carcinoma of colon, Onset Age: 57 Other Family history of irritable bowel syndrome Social History Social History Smoking packs per day: 1 Smoking cigarettes per day: 20.0 Years smoked: 20 Smoking pack-years: 20.00 Smoking status: Former smoker Smoking end date: 10/25/22 Alcohol intake: never Substance use: current Substance use type: marijuana Other substance usage details: edible and smokes Last use: today Do You Feel Safe in your Home?: Yes Lack of Transportation: No Lack of Food: Never True Current Housing: I Have Housing Concerned About Future Housing: No Difficulty Paying Gas/Electric Bills: No Currently Unemployed: No Education: High School Diploma/GED Difficulty w/ Childcare or Family Care: No Meds Home Medications and Allergies Home Medications ?Medication ?Instructions ?Recorded ?Confirmed ?Type cetirizine 10 mg capsule (Zyrtec) 10 mg PO DAILY PRN allergy symptoms 02/18/24 01/01/25 History clonidine HCl 0.2 mg tablet 0.2 mg PO DAILY #90 tabs 02/18/24 01/08/25 Rx losartan 50 mg tablet 50 mg PO DAILY #90 tabs 09/02/24 01/08/25 Rx fluoxetine 40 mg capsule 40 mg PO QAM #90 caps 09/03/24 01/08/25 Rx alprazolam 0.25 mg tablet 0.25 mg PO TID PRN anxiety #60 tabs 12/17/24 01/08/25 Rx gabapentin 100 mg capsule 100 mg PO QHS 01/01/25 01/08/25 History (Neurontin) Allergies Allergy/AdvReac Type Severity Reaction Status Date / Time ibuprofen AdvReac Intermediate Gastrointestinal Verified 01/08/25 06:23 Upset lisinopril AdvReac Intermediate Cough Verified 01/08/25 06:23 Vital Signs Vital Signs - 24 hr 01/08/25 06:25 Temperature 97 F L Pulse Rate 60 Respiratory Rate 16 Blood Pressure 135/66 Pulse Oximetry 100 Oxygen Delivery Room Air Exam Const: General: comfortable and no acute distress HENMT: Face/Nose/Sinus: Normal nares present Eyes: General: appearance normal, both eyes and all related structures Neck: Neck: no JVD Resp: Auscultation: clear to auscultation bilaterally Cardio: Rate: regular rate Rhythm: regular rhythm GI: Inspection: non-distended GI Palp: Yes Soft to palpation Skin: General skin exam: normal color Neuro: General: gait normal Speech: normal speech Extrem: General: normal to inspection Psych: Mental Status: mental status grossly normal Assessment and Plan Assessment and plan (1) Family history of colon cancer in mother: Code(s): Z80.0 - Family history of malignant neoplasm of digestive organs Status: Acute Assessment and Plan: colonoscopy
[2025-01-08 07:48] VITALS: BP 125/70; PULSE 60; RESP 17; O2SAT 100
[2025-01-08 07:58] VITALS: BP 127/75; PULSE 66; RESP 19; O2SAT 100
[2025-01-08 08:08] VITALS: BP 120/83; PULSE 67; RESP 24; O2SAT 100
== END 2025-01-08 08:15 | disposition home or self-care (01) ==
PROVIDERS: PCP Family Medicine; Referring Provider Family Medicine; Visit Provider Internal Medicine Gastroenterology
PROC: 0DJD8ZZ Inspection of Lower Intestinal Tract, Via Natural or Artificial Opening Endoscopic (ICD-10-PCS; CPT 45378; principal; 2025-01-08 07:30)
DX: Z12.11 Encounter for screening for malignant neoplasm of colon (principal); K64.8 Other hemorrhoids; F41.9 Anxiety disorder, unspecified; F12.90 Cannabis use, unspecified, uncomplicated; Z87.891 Personal history of nicotine dependence; Z80.0 Family history of malignant neoplasm of digestive organs; Z82.49 Family history of ischemic heart disease and other diseases of the circulatory system
CPT/HCPCS: 45378; J2704; J7120